=== PATIENT | female | born 1970 | race African-American/Black ===

== ENCOUNTER 2019-07-25 15:54 | Emergency (ER) | payer BC ==
[2019-07-25] MEDS ORDERED: CYCLOBENZAPRINE 10 MG TAB ONE (17:33)
[2019-07-25] MEDS ORDERED: KETOROLAC 30 MG/ML INJ ONE (17:34)
--- NOTE | 2019-07-25 17:51 | EDPHYS ---
Physician Documentation [facility] Name: Italia Valladares Age: 48 yrs Sex: Female : 1970 Arrival Date: 07/25/2019 Time: 15:54 Bed 27 Private MD: ED Physician Michelet Cobian HPI: 07/25 21:41 This 48 yrs old Black Female presents to ER via Ambulatory with complaints of Facial tw4 Tension. 21:41 The patient complains of pain to the forehead, right ear, right scientologist and right jaw. tw4 The patient describes the headache as pounding, a pressure. Onset: The symptoms/episode began/occurred today. Associated signs and symptoms: The patient has no apparent associated signs or symptoms. Severity of symptoms: At its worst the pain was moderate, in the emergency department the pain has improved. Headache History: Denies prior headaches. The patient has not experienced similar symptoms in the past. 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 - Social history:: Smoking status: Patient/guardian denies using tobacco. - Ebola Screening: : No symptoms or risks identified at this time. ROS: 21:41 Constitutional: Negative for fever, chills, and weight loss, Eyes: Negative for injury, tw4 pain, redness, and discharge, Cardiovascular: Negative for chest pain, palpitations, and edema, Respiratory: Negative for shortness of breath, cough, wheezing, and pleuritic chest pain, Abdomen/GI: Negative for abdominal pain, nausea, vomiting, diarrhea, and constipation, Back: Negative for injury and pain, MS/Extremity: Negative for injury and deformity, Skin: Negative for injury, rash, and discoloration. 21:41 Neuro: Positive for headache, Negative for altered mental status, dizziness, gait disturbance, seizure activity, speech changes, syncope, near syncope, tingling, tinnitus, visual changes. Exam: 21:41 Constitutional: This is a well developed, well nourished patient who is awake, alert, tw4 and in no acute distress. Head/Face: Normocephalic, atraumatic. Chest/axilla: Normal chest wall appearance and motion. Nontender with no deformity. No lesions are appreciated. Cardiovascular: Regular rate and rhythm with a normal S1 and S2. No gallops, murmurs, or rubs. Normal PMI, no JVD. No pulse deficits. Respiratory: Lungs have equal breath sounds bilaterally, clear to auscultation and percussion. No rales, rhonchi or wheezes noted. No increased work of breathing, no retractions or nasal flaring. Abdomen/GI: Soft, non-tender, with normal bowel sounds. No distension or tympany. No guarding or rebound. No evidence of tenderness throughout. Skin: Warm, dry with normal turgor. Normal color with no rashes, no lesions, and no evidence of cellulitis. MS/ Extremity: Pulses equal, no cyanosis. Neurovascular intact. Full, normal range of motion. Vital Signs: 16:07 BP 141 / 85; Pulse 68; Resp 16 S; Temp 98.1(TE); Pulse Ox 100% on R/A; Pain 5/10; aa5 17:18 BP 119 / 76; Pulse 70; Resp 17; Pulse Ox 100% on R/A; rv 18:00 BP 110 / 79; Pulse 66; Resp 16; Pulse Ox 100% on R/A; rv Mely Coma Score: 21:41 Eye Response: spontaneous(4). Verbal Response: oriented(5). Motor Response: obeys tw4 commands(6). Total: 15. MDM: 16:10 Patient medically screened. tw4 21:41 Data reviewed: vital signs, nurses notes. Counseling: I had a detailed discussion with tw4 the patient and/or guardian regarding: the historical points, exam findings, and any diagnostic results supporting the discharge/admit diagnosis. Special discussion: I discussed with the patient/guardian in detail that at this point there is no indication for admission to the hospital. It is understood, however, that if the symptoms persist or worsen the patient needs to return immediately for re-evaluation. Administered Medications: 17:39 Drug: TORadol 60 mg Route: IM; Site: right deltoid; rv 18:01 Follow up: Response: No adverse reaction rv 17:39 Drug: Flexeril 10 mg Route: PO; rv 18:00 Follow up: Response: No adverse reaction rv Disposition: 07/25/19 17:50 Discharged to Home. Impression: Sprain of ligaments of cervical spine. - Condition is Stable. - Discharge Instructions: General Headache Without Cause, Cervical Sprain. - Prescriptions for Fiorinal 50- 325-40 mg Oral Capsule - take 1 capsule by ORAL route every 4 hours As needed - not to exceed 6 capsules per day; 20 capsule. Cyclobenzaprine 5 mg Oral Tablet - take 1 tablet by ORAL route 3 times per day As needed; 15 tablet. - Medication Reconciliation Form, Thank You Letter, Antibiotic Education, Prescription Opioid Use form. - Follow up: Private Physician; When: Upon discharge from the Emergency Department; Reason: Recheck today's complaints, Continuance of care. - Problem is new. - Symptoms have improved. Signatures: Rosa Maria Gonzalez, RN RN aa5 Michelet Cobian MD MD tw4 Adam Plata RN RN rv Corrections: (The following items were deleted from the chart) 18:01 17:50 07/25/2019 17:50 Discharged to Home. Impression: Sprain of ligaments of cervical rv spine. Condition is Stable. Forms are Medication Reconciliation Form, Thank You Letter, Antibiotic Education, Prescription Opioid Use. Follow up: Private Physician; When: Upon discharge from the Emergency Department; Reason: Recheck today's complaints, Continuance of care. Problem is new. Symptoms have improved. tw4
--- NOTE | 2019-07-25 17:51 | ER ---
Nurse's Notes [facility] Name: Italia Valladares Age: 48 yrs Sex: Female : 1970 Arrival Date: 07/25/2019 Time: 15:54 Bed 27 Private MD: Diagnosis: Sprain of ligaments of cervical spine Presentation: 07/25 16:04 Presenting complaint: Patient states: "I feel tension to the right side of my face, aa5 it's like pressure, and nerve pain". Pt denies numbness and tingling to right side of face. Pt also reports numbness to nikki hands. Pt reports symptoms began at 1345. Transition of care: patient was not received from another setting of care. Onset of symptoms was July 2019. Risk Assessment: Do you want to hurt yourself or someone else? Patient reports no desire to harm self or others. Initial Sepsis Screen: Does the patient meet any 2 criteria? No. Patient's initial sepsis screen is negative. Does the patient have a suspected source of infection? No. Patient's initial sepsis screen is negative. Care prior to arrival: None. 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 - Social history:: Smoking status: Patient/guardian denies using tobacco. - Ebola Screening: : No symptoms or risks identified at this time. Screenin:18 Abuse screen: Denies threats or abuse. Denies injuries from another. Nutritional rv screening: No deficits noted. Tuberculosis screening: No symptoms or risk factors identified. Fall Risk None identified. Assessment: 17:17 General: Appears in no apparent distress. Behavior is calm, cooperative. Pain: Denies rv pain. Neuro: Level of Consciousness is awake, alert, obeys commands, Oriented to person, place, time, situation. Neuro: Denies weakness difficulty swallowing, numbness headache. Cardiovascular: Patient's skin is warm and dry. Respiratory: Airway is patent. Derm: Skin is intact. Vital Signs: 16:07 BP 141 / 85; Pulse 68; Resp 16 S; Temp 98.1(TE); Pulse Ox 100% on R/A; Pain 5/10; aa5 17:18 BP 119 / 76; Pulse 70; Resp 17; Pulse Ox 100% on R/A; rv 18:00 BP 110 / 79; Pulse 66; Resp 16; Pulse Ox 100% on R/A; rv Brook Coma Score: 21:41 Eye Response: spontaneous(4). Verbal Response: oriented(5). Motor Response: obeys tw4 commands(6). Total: 15. ED Course: 15:54 Patient arrived in ED. rg4 16:04 Arm band placed on. aa5 16:06 Triage completed. aa5 16:10 Michelet Cobian MD is Attending Physician. tw4 16:12 Adam Plata, CARLY is Primary Nurse. rv 17:18 Patient has correct armband on for positive identification. Pulse ox on. NIBP on. rv 18:01 No provider procedures requiring assistance completed. Patient did not have IV access rv during this emergency room visit. Administered Medications: 17:39 Drug: TORadol 60 mg Route: IM; Site: right deltoid; rv 18:01 Follow up: Response: No adverse reaction rv 17:39 Drug: Flexeril 10 mg Route: PO; rv 18:00 Follow up: Response: No adverse reaction rv Outcome: 17:50 Discharge ordered by . tw4 18:01 Discharged to home ambulatory, with family. rv 18:01 Condition: good 18:01 Discharge instructions given to patient, Instructed on discharge instructions, follow up and referral plans. medication usage, Demonstrated understanding of instructions, follow-up care, medications, Prescriptions given X 2. 18:01 Patient left the ED. rv Signatures: Rosa Maria Gonzalez, RN RN Jolie Patten 4 Michelet Cobian MD MD [facility] Adam Plata, CARLY RN rv
[2019-07-25 18:41] VITALS: TEMP 98.1; O2SAT 100
[2019-07-25 18:45] VITALS: BP 110/79
== END 2019-07-25 18:01 | disposition home or self-care (01) ==
LOC: ER 15:54
DX: S13.4XXA Sprain of ligaments of cervical spine, initial encounter (principal); X58.XXXA Exposure to other specified factors, initial encounter
CPT/HCPCS: 96372; 99283

== ENCOUNTER 2022-02-16 18:59 | Emergency (ER) | payer BC, SELFPAY ==
[2022-02-16 19:55] LABS: Urine Blood Negative (Negative); Urine Glucose Negative (Negative); Urine Protein Negative (Negative); Urine Specific Gravity 1.015 (1.005-1.030); Urine pH 6.5 (5.0-7.0)
[2022-02-16 20:31] LABS: Absolute Lymphocytes (CBC) 4.3 K/uL (0.7-4.9); Lymphocytes % 43.3 % (15.3-44.8); MCV 87.5 fL (80-100); MPV 9.5 fL (7.6-11.3); RBC Red Blood Cell Count 4.69 M/uL (3.86-4.86)
[2022-02-16 20:32] LABS: Protime INR 1.04
[2022-02-16 20:38] LABS: Urine Bacteria None Seen /HPF (<20); Urine RBC <5 /HPF (None Seen)
--- NOTE | 2022-02-16 20:41 | RAD REPORT ---
EXAM DESCRIPTION: RAD - Chest Single View - 02/16/2022 8:09 pm CLINICAL HISTORY: PALPITATIONS Chest pain. COMPARISON: No comparisons FINDINGS: Portable technique limits examination quality. The lungs are grossly clear. The heart is normal in size. No displaced fractures. IMPRESSION: No acute intrathoracic process suspected.
[2022-02-16 21:17] LABS: ALT/SGPT 33 U/L (12-78); AST/SGOT 19 U/L (15-37); Albumin 3.6 g/dL (3.4-5.0); Alkaline Phosphatase 54 U/L (45-117); BUN Blood Urea Nitrogen 18 mg/dL (7-18); Bicarbonate 31 mmol/L (21-32); Bilirubin Total 0.3 mg/dL (0.2-1.0); Glomerular Filtration Rate 48 ml/min (=/>90); Glucose Level 94 mg/dL (74-106); Magnesium 2.2 mg/dL (1.8-2.4); NT PRO-BNP 42 pg/mL (<125); Potassium 3.2 mmol/L (3.5-5.1); Protein, Total 7.6 g/dL (6.4-8.2); Sodium Level 141 mmol/L (136-145); T3 Free 2.47 pg/mL (2.18-3.98); Thyroid Stimulating Hormone 0.583 uIU/mL (0.360-3.740); Troponin High Sensitivity 16.7 pg/mL (<58.9)
[2022-02-16 21:18] LABS: Bilirubin Direct < 0.1 mg/dL (0-0.2)
[2022-02-16 21:25] LABS: Blood Morphology Comment NOT SEEN (NOT SEEN); Platelet Estimate ADEQ; White Blood Cell Scan OK (OK)
[2022-02-16 22:10] LABS: Urine Specific Gravity/Preg 1.015 (1.005-1.030)
[2022-02-16] MEDS ORDERED: POTASSIUM 25 MEQ EFFERV TAB ONE (23:07)
[2022-02-17] MEDS ORDERED: METOPROLOL TAR 25 MG TAB ONE (01:48)
[2022-02-17 04:29] VITALS: TEMP 98.3
[2022-02-17 04:37] VITALS: BP 124/111; O2SAT 99
--- NOTE | 2022-02-17 08:50 | EKG ---
Test Date: 2022-02-16 Test Time: 19:58:43 Balance Weigher: FRANCES MEASUREMENT RESULTS: Intervals: Rate: 81 WY: 192 QRSD: 82 QT: 388 QTc: 450 [place]: P: 52 WY: 192 QRS: 43 T: 46 INTERPRETIVE STATEMENTS: Normal sinus rhythm Normal ECG No previous ECG available for comparison Electronically Signed On 02-17-22 08:46:57 CDT by Marques Lopez
--- OUTSIDE RECORDS SUMMARY | 2022-02-17 11:15 | XMS REPORT | Continuity of Care Document ---
:1970 Author Organization [facility] t Address [address] [place] [address] Care Team Providers Name Role Phone SANFORD WELCH Primary Care Physician Unavailable GEOVANNA DAVIS Attending Clinician Unavailable Geovanna Ernandez Attending Clinician GEOVANNA DAVIS Admitting Clinician Unavailable Payers Payer Name Policy Type Policy Number Effective Date Expiration Date S huy [facility] [place] - [id number] 2021 00:00:00 OUT OF STATE Problems Condition Condition Condition Status Onset Resolution Last Treating Co mments Source Name Details Category Date Date Treatment Clinician Date No known No known Disease Unive rs active active ity of problems problems [facility] [place] [facility] Allergies, Adverse Reactions, Alerts Allergy Allergy Status Severity Reaction(s) Onset Inactive Treating Comm ents Source Name Type Date Date Clinician NO KNOWN Drug Active Univers ALLERGIE Class ity of S [facility] [place] [facility] Social History Social Habit Start Date Stop Date Quantity Comments Source Exposure to Not sure [facility] SARS-CoV-2 (event) Medica l Branch Sex Assigned At [birth year] [facility] 00:00:00 00:00:00 [facility] Smoking Status Start Date Stop Date Source Unknown if ever smoked [facility] Medications Ordered Filled Start Stop Current Ordering Indication Dosage Frequency Signature Comments Components Source Medication Medication Date Date Medication? Clinician (SIG) Name Name dicyclomine No 20mg 20 mg, Uni vers (BENTYL) 08-02 Intramuscu ity of injection 05:15: 04:17 lar, ONCE, [place] 20 mg 00 :00 1 dose, On Medical Fri Branch 08/01/21 at 2315, Routine maalox:diph 2021- No 15mL 15 mL, Uni vers enhydrAMINE 08-02 Oral, ity of :lidocaine 03:15: 03:28 ONCE, 1 Saad as 2 % viscous 00 :00 dose, On Medi meghan 1:1:1 Fri Branch (FIRST-MOUT 08/01/21 at [facility]) 2115, oral Routine suspension 15 mL ondansetron 2021- No 4mg 4 mg, Slow Univers (ZOFRAN 08-02 IV Push, ity of (PF)) 03:15: 03:29 ONCE, 1 [place] injection 4 00 :00 dose, On Medi meghan mg Fri Branch 08/01/21 at 2115, MICHAEL morpHINE 2021- No 4mg 4 mg, Slow Un slick injection 4 08-02 IV Push, ity of mg 03:15: 03:29 ONCE, 1 [place] 00 :00 dose, On Medical Fri Branch 08/01/21 at 2115, STAT NaCl 0.9% 2021- No 1000mL at 999 Uni vers (NS) bolus 08-02 mL/hr, ity of infusion 03:15: 04:17 1,000 mL, Saad as 1,000 mL 00 :00 IV Medical Infusion, Branch ONCE, 1 dose, On 08/01/21 at 2115, MICHAEL iohexol 2021- No [id number] 120mL 120 mL, Univers (OMNIPAQUE 08-02 Intravenou it y of 350 03:00: 02:44 s, ONCE, 1 [place] BULK-100 00 :00 dose, On Medical mL) Fri Branch injection 08/01/21 at 120 mL 2100, Routine dicyclomine 0 Yes [id number] 10mg Take 1 Univers 10 mg 1-14 capsule by ity of capsule 00:00: mouth 4 [place] 00 (four) Medical times Branch daily as needed for Abdominal pain. ondansetron 0 Yes [id number] 4mg Take 1 Univers 4 mg 1-14 tablet by ity of disintegrat 00:00: mouth [place] ing tablet 00 every 12 Medic al (twelve) Branch hours as needed for Nausea and Vomiting (N/V). traMADoL 2021- No [id number] 50mg Take 1 Univer s (ULTRAM) 50 1-14 08-09 tablet by it y of mg tablet 00:00: 05:59 mouth [place] 00 :00 every 6 Medical (six) Branch hours as needed for Pain (scale 7-10) for up to 7 days. Indication s: acute pain Immunizations Ordered Filled Immunization Date Status Comments [facility] e Immunization Name Name SARS-COV-2 COVID-19 2020-10-13 Completed Unive rsity of MODERNA VACCINE 00:00:00 [facility] SARS-COV-2 COVID-19 2020-09-15 Completed Unive rsity of MODERNA VACCINE 00:00:00 [facility] Vital Signs Vital Name Observation Time Observation Value Comments Source Systolic blood 2021-08-02 04:15:00 157 mm[Hg] Univer sity of pressure [facility] Diastolic blood 2021-08-02 04:15:00 97 mm[Hg] Unive [facility] of pressure [facility] Heart rate 2021-08-02 04:15:00 68 /min [facility] Respiratory rate 2021-08-02 04:15:00 22 /min [facility] Oxygen saturation in 2021-08-02 04:15:00 99 /min [facility] Arterial blood by [facility] Pulse oximetry [place] Body temperature 2021-08-02 02:02:00 36.83 Krystal [facility] Body weight 2021-08-02 02:02:00 108.863 kg [facility] Procedures Procedure Date / Time Performed Performing Clinician [facility] e CT ABDOMEN PELVIS W 2021-08-02 02:48:17 Geovanna Davis [facility] CONTRAST [facility] URINALYSIS 2021-08-02 02:29:00 Geovanna Davis [facility] COVID-19 (ID NOW RAPID 2021-08-02 02:29:00 Geovanna Davis [facility] TESTING) Medical Branch LIPASE 2021-08-02 02:18:00 Geovanna Davis [facility] TROPONIN I 2021-08-02 02:18:00 Geovanna Davis [facility] COMP. METABOLIC PANEL 2021-08-02 02:18:00 Geovanna Davis [facility] ([id number]) [facility] CBC WITH DIFF 2021-08-02 02:18:00 Geovanna Davis [facility] NOTICE OF PRIVACY 2021-08-02 01:53:07 Doctor Unassigned, No Univ [facility] PRACTICES Name [facility] CONSENT/REFUSAL FOR 2021-08-02 01:51:56 [facility] TREATMENT Encounters Start End Encounter Admission Attending Care Care Encounter Source Date/Time Date/Time Type Type Clinicians Facility Department ID 2021-08-01 2021-08-01 Emergency X [facility] ERT [id number] Univers 20:00[facility]00 22[facility]34[facility]-01 2021-08-01 Emergency [facility] [id number] Univers 20:00:00 22:34:00 Geovanna [place] CONNELL [id number] i [facility] [id number] [facility] [id number] [place] [id number] Branch Results Test Description Test Time Test Comments Results Result Comments Source TROPONIN I 2021-08-02 02:59:02 Test Item Value Reference Range Interpretation Comme nts TROPONIN I (test code = 0.001 ng/mL See_Comment [Au tomated message] The 5630126784) system which ge nerated this result tra nsmitted reference range : <=0.034. The reference r rosa was not used to int erpret this result as normal/abnormal . FLORIAN (test code = FLORIAN) Reference (Normal) Range (defined by the 99th percentile reference limit): <= 0.034 ng/mL Note: Cardiac troponin begins to rise 3-4 hours after the onset of ischemia. Repeat in 4-6 hours if the sample was drawn within 3-4 hours of the onset of the symptom and found normal. Diagnosis of myocardial injury is made with acute changes in cTn concentrations with at least one serial sample above the 99th percentile upper reference limit (URL), taken together with the patient's clinical presentation. Biotin has been reported to cause a negative bias, interpret results relative to patient's use of biotin. Lab Interpretation Normal (test code = 36393-9) [facility]. METABOLIC PANEL ([id number])2021-08-02 02:50:22 Test Item Value Reference Range Interpretation Comments NA (test code = 137 mmol/L 135-145 2215749740) K (test code = 3.9 mmol/L 3.5-5.0 3587040927) CL (test code = 102 mmol/L 98-108 7501040491) CO2 TOTAL (test code = 29 mmol/L 23-31 5640382875) AGAP (test code = 2-16 5002803548) BUN (test code = 15 mg/dL 7-23 9450010316) GLUCOSE (test code = 108 mg/dL 70-110 9842155341) CREATININE (test code = 1.01 mg/dL 0.50-1.04 7641777326) TOTAL BILI (test code = 0.5 mg/dL 0.1-1.7 8628939083) CALCIUM (test code = 9.0 mg/dL 8.6-10.6 6915334067) T PROTEIN (test code = 7.7 g/dL 6.3-8.2 4684159457) ALBUMIN (test code = 4.2 g/dL 3.5-5.0 9965196169) ALK PHOS (test code = 68 U/L 34-122 2199260937) ALTv (test code = 44 U/L 5-35 H 1742-6) AST(SGOT) (test code = 35 U/L 13-40 6858027903) eGFR (test code = mL/min/1.73m2 8156664477) FLORIAN (test code = FLORIAN) Association of Glomerular Filtration Rate (GFR) and Staging of Kidney Disease* + --+ --+ ------+| GFR (mL/min/1.73 m2) ?| With Kidney Damage ?| ?Without Kidney Damage+ --------+ --------+ +| ?>90 ?| ?Stage one ?| ? Normal ?+ ---+ ---+ -------+| ?60-89 ?| ?Stage two ?| ? Decreased GFR ? + --+ --+ ------+| ?30-59 ?| ?Stage three ?| ? Stage three ? + --+ --+ ------+| ?15-29 ?| ?Stage four ? | ? Stage four ?+ ---+ ---+ -------+| ?<15 (or dialysis) ? ?| ?Stage five ? | ? Stage five ?+ ---+ ---+ -------+ *Each stage assumes the associated GFR level has been in effect for at least three months. ?Stages 1 to 5, with or without kidney disease, indicate chronic kidney disease. Notes: Determination of stages one and two (with eGFR >59mL/min/1.73 m2) requires estimation of kidney damage for at least three months as defined by structural or functional abnormalities of the kidney, manifested by either:Pathological abnormalities or Markers of kidney damage (including abnormalities in the composition of the blood or urine or abnormalities in imaging tests). Lab Interpretation Abnormal (test code = 98474-2) [facility] Test Item Value Reference Range Interpretation Comments LIPASE (test code = 8113333491) 43 U/L 0-220 Lab Interpretation (test code = Normal 72135-0) [facility] WITH [id number] 02:33:42 Test Item Value Reference Range Interpretation Comments WBC (test code = See_Comment [Automated message] 5390-2) The system Tymphany generated this result transmitted ref erence range: 4.30 - 1 1.10 10*3/?L. The re ference range was not u sed to interpret this result as normal/abnor mal. RBC (test code = See_Comment [Automated message] 789-8) The system Tymphany generated this result transmitted ref erence range: 3.93 - 5 .25 10*6/?L. The re ference range was not u sed to interpret this result as normal/abnor mal. HGB (test code = 14.1 g/dL 11.6-15.0 718-7) HCT (test code = 42.0 % 35.7-45.2 4544-3) MCV (test code = 86.8 fL 80.6-95.5 787-2) MCH (test code = 29.1 pg 25.9-32.8 785-6) MCHC (test code = 33.6 g/dL 31.6-35.1 786-4) RDW-SD (test code 39.7 fL 39.0-49.9 = 02807-4) RDW-CV (test code 12.5 % 12.0-15.5 = 788-0) PLT (test code = See_Comment [Automated message] 777-3) The system whic h generated this result transmitted ref erence range: 166 - 35 8 10*3/?L. The re ference range was not u sed to interpret this result as normal/abnor mal. MPV (test code = 10.8 fL 9.5-12.9 83104-0) NRBC/100 WBC (test See_Comment [Automat ed message] code = 7926609523) The syste m which generated this result transmitted ref erence range: 0.0 - 10 .0 /100 WBCs. The refer ence range was not u sed to interpret this result as normal/abnor mal. NRBC x10^3 (test <0.01 See_Comment [Automated message] code = 3834235655) The syste m which generated this result transmitted ref erence range: 10*3/?L. The reference range was not used to interpr et this result as normal/abnormal . GRAN MAT (NEUT) % 62.4 % (test code = 770-8) IMM GRAN % (test 0.40 % code = 5357413322) LYMPH % (test code 30.0 % = 736-9) MONO % (test code 6.0 % = 5905-5) EOS % (test code = 0.6 % 713-8) BASO % (test code 0.6 % = 706-2) GRAN MAT 6.68 10*3/uL 1.88-7.09 x10^3(ANC) (test code = 0046390089) IMM GRAN x10^3 0.04 10*3/uL 0.00-0.06 (test code = 4979732550) LYMPH x10^3 (test 3.21 10*3/uL 1.32-3.29 code = 731-0) MONO x10^3 (test 0.64 10*3/uL 0.33-0.92 code = 742-7) EOS x10^3 (test 0.06 10*3/uL 0.03-0.39 code = 711-2) BASO x10^3 (test 0.06 10*3/uL 0.01-0.07 code = 704-7) [facility]"
--- NOTE | 2022-02-17 13:17 | RAD REPORT ---
EXAM DESCRIPTION: CT - Chest For Pe Angio - 02/17/2022 4:11 am CLINICAL HISTORY: The patient is 51 years old and is Female; palpitations TECHNIQUE: Axial computed tomographic angiography images of the chest with intravenous contrast. T his CT exam was performed using one or more of the following dose reduction techniques: automated e xposure control, adjustment of the mA and/or kV according to patient size, and/or use of iterative re construction technique. MIP reconstructed images were created and reviewed. DLP: 497 mGy*cm COMPARISON: Chest radiograph of the same day. FINDINGS: PULMONARY ARTERIES: Unremarkable. No pulmonary embolism. AORTA: No acute findings. No thoracic aortic aneurysm. LUNGS: Unremarkable. No mass. No consolidation. PLEURAL SPACE: Unremarkable. No significant effusion. No pneumothorax. HEART: Unremarkable. No cardiomegaly. No significant pericardial effusion. No evidence of RV dysfunction. BONES/JOINTS: No acute fracture. No dislocation. SOFT TISSUES: Unremarkable. LYMPH NODES: Unremarkable. No enlarged lymph nodes. OTHER FINDINGS: Multilevel density changes. IMPRESSION: No pulmonary embolism. No acute intrathoracic abnormality. Electronically signed by: Derrell Kern DO 02/16/2022 11:45 PM CDT Due to temporary technical issues with the PACS/FlueNcy reporting system, reports are being signed by the in house radiologists without review as a courtesy to insure prompt reporting. The interpreting radiologist is fully responsible for the content of the report.
--- NOTE | 2022-02-17 13:18 | RAD REPORT ---
EXAM DESCRIPTION: US - Extrem Venous W Compress [place] - 02/17/2022 12:30 am CLINICAL HISTORY: 51 years Female SWELLING COMPARISON: None TECHNIQUE: Spectral analysis and color/grayscale sonographic images of both legs were obtained utili zing a high-frequency linear array transducer supplemented with color Doppler, compression and augmen tation techniques. FINDINGS: Right leg veins: Common femoral: normal Greater saphenous: normal Superficial femoral: normal Popliteal: normal Calf Veins: normal Left leg veins: Common femoral: normal Greater saphenous: normal Superficial femoral: normal Popliteal: normal Calf Veins: normal IMPRESSION: 1. No sonographic evidence for lower extremity deep venous thrombosis in either leg. Electronically signed by: Adonis Gonzalez MD 02/17/2022 12:09 AM CDT Due to temporary technical issues with the PACS/FlueNcy reporting system, reports are being signed by the in house radiologists without review as a courtesy to insure prompt reporting. The interpreting radiologist is fully responsible for the content of the report.
--- NOTE | 2022-02-18 09:57 | ER ---
Nurse's Notes [facility] Name: Italia Valladares Age: 51 yrs Sex: Female : 1970 Arrival Date: 02/16/2022 Time: 19:32 Bed 23 Private MD: Diagnosis: Supraventricular tachycardia Presentation: 02/16 19:47 Chief complaint: EMS states: they were toned out for report of pt with chest pain and bb SOB pt was in SVT on their arrival with a rate of 175 they gave aspirin 324 mg and adenosine 6 mg and rate now in the 90s. Coronavirus screen: At this time, the client does not indicate any symptoms associated with coronavirus-19. Ebola Screen: No symptoms or risks identified at this time. Initial Sepsis Screen: Does the patient meet any 2 criteria? No. Patient's initial sepsis screen is negative. Does the patient have a suspected source of infection? No. Patient's initial sepsis screen is negative. Risk Assessment: Do you want to hurt yourself or someone else? Patient reports no desire to harm self or others. Onset of symptoms was February 16, 2022. Care prior to arrival: Medication(s) given: Adenosine, 6 mg, x 1, ASA, 81 mg, x 4, Normal saline infusion, 250 mL IV initiated. 18 GA, in the left antecubital area. 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 - Social history:: Smoking status: unknown. Screenin:51 Abuse screen: Denies threats or abuse. Nutritional screening: No deficits noted. bb Tuberculosis screening: No symptoms or risk factors identified. Fall Risk None identified. Assessment: 19:51 General: Appears in no apparent distress. Behavior is calm, cooperative. Pain: Denies bb pain. Neuro: Level of Consciousness is awake, alert, obeys commands, Oriented to person, place, time, situation. Cardiovascular: Capillary refill < 3 seconds Patient's skin is warm and dry. Rhythm is sinus rhythm. Respiratory: Respiratory effort is even, unlabored, Respiratory pattern is regular. Respiratory: Breath sounds are clear bilaterally. GI: No signs and/or symptoms were reported involving the gastrointestinal system. Derm: Skin is dry, Skin is normal, Skin temperature is warm. Musculoskeletal: Circulation, motion, and sensation intact. 20:22 Reassessment: Patient is alert, oriented x 3, equal unlabored respirations, skin bb warm/dry/pink. family at bedside awaiting diagnostic results. 02/17 01:49 Reassessment: No changes from previously documented assessment. Patient and/or family [facility] updated on plan of care and expected duration. Pain level reassessed. Vital Signs: 02/16 19:47 BP 132 / 101; Pulse 90; Resp 16 S; Temp 97.9(O); Pulse Ox 100% on R/A; Weight 106.14 kg bb (R); Height 5 ft. 7 in. (170.18 cm) (R); Pain 0/10; 20:22 BP 114 / 76; Pulse 85; Resp 20 S; Pulse Ox 100% on R/A; bb 20:45 BP 110 / 68; Pulse 84; Resp 18; Temp 98.3(O); Pulse Ox 100% on R/A; wm 22:30 BP 117 / 79; Pulse 77; Resp 18; Pulse Ox 100% on R/A; 5 02/17 01:49 BP 124 / 111; Pulse 75; Resp 18; Pulse Ox 99% on R/A; [facility] 02/16 19:47 Body Mass Index 36.65 (106.14 kg, 170.18 cm) ED Course: 02/16 19:32 Patient arrived in ED. bb 19:34 Sameer Ryan PA is PHCP. cp 19:34 Domo [place]inas MD is Attending Physician. cp 19:47 Sofya Swann RN is Primary Nurse. bb 19:50 Triage completed. bb 19:50 Arm band placed on Patient placed in an exam room, on a stretcher, on hall monitor, bb on pulse oximetry. EKG completed in triage. Results shown to MD. 19:51 Patient has correct armband on for positive identification. Placed in gown. Bed in low bb position. Call light in reach. Side rails up X 1. Client placed on continuous cardiac and pulse oximetry monitoring. NIBP monitoring applied. Warm blanket given. 19:51 Maintain EMS IV. Dressing intact. Site clean \T\ dry. Gauge \T\ site: 18g L AC. bb 20:11 XRAY Chest (1 view) In Process Unspecified. EDMS 20:14 Urine Dipstick-Ancillary Sent. zm 20:14 T4 Free Sent. zm 20:14 T3 Free Sent. zm 20:14 TSH Sent. zm 20:14 Urine Microscopic Only Sent. zm 20:14 Basic Metabolic Panel Sent. zm 20:15 CBC with Diff Sent. zm 20:15 LFT's Sent. zm 20:15 Magnesium Sent. zm 20:15 NT PRO-BNP Sent. zm 20:15 PT-INR Sent. zm 20:15 Troponin HS Sent. zm 23:20 CT Chest For PE Angio In Process Unspecified. EDMS 23:33 LAB Add On Sent. sm5 23:54 US Extremity Venous W Compression [place] In Process Unspecified. EDME 02/17 01:36 Marques Lopez MD is Referral Physician. cp 01:50 No provider procedures requiring assistance completed. IV discontinued, intact, sm5 bleeding controlled, No redness/swelling at site. Pressure dressing applied. Administered Medications: 02/16 23:32 Drug: Potassium Effervescent Tablet 50 mEq Route: PO; bb 02/17 01:49 Drug: Metoprolol 12.5 mg Route: PO; 5 01:51 Follow up: Response: No adverse reaction 5 Medication: 01:50 VIS not applicable for this client. 5 Outcome: 01:36 Discharge ordered by . cp 01:50 Discharged to home ambulatory, with family. sm5 01:50 Condition: stable 01:50 Discharge instructions given to patient, family, Instructed on discharge instructions, follow up and referral plans. medication usage, Demonstrated understanding of instructions, follow-up care, medications, Prescriptions given X 1. 01:51 Patient left the ED. 5 Signatures: Dispatcher [employer] EDMS Sofya Swann RN RN Sameer Mcfadden PA PA cp Marsh, Wendy wm Mazur, Sarah, RN RN 5 Veronica Monteiro
--- NOTE | 2022-02-18 09:57 | EDPHYS ---
Physician Documentation [facility] Name: Italia Valladares Age: 51 yrs Sex: Female : 1970 Arrival Date: 02/16/2022 Time: 19:32 Bed 23 Private MD: ED Physician Domo [place] HPI: 02/16 20:00 This 51 yrs old Black Female presents to ER via EMS with complaints of Palpitations. cp 20:00 The patient presents with a history of heart racing. Context: The symptoms occur while cp eating tonight. 20:00 Onset: The symptoms/episode began/occurred just prior to arrival. cp 20:00 Duration: The patient or guardian reports a single episode, that is now resolved, EMS cp reported performing EKG that showed supraventricular tachycardia. Patient given 6 mg Adenosine and now reports chest pain and palpitations resolved. 20:00 Associated signs and symptoms: Pertinent positives: chest pain, palpitations, Pertinent cp negatives: cough, fever, SOB, syncope, unusual stressors. 20:00 Severity of symptoms: in the emergency department the symptoms have resolved after cp treatment by EMS personnel. 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 - Social history:: Smoking status: unknown. ROS: 20:05 Constitutional: Negative for body aches, chills, fever, poor PO intake. cp 20:05 Eyes: Negative for injury, pain, redness, and discharge. cp 20:05 Cardiovascular: Positive for chest pain, palpitations, Negative for edema. 20:05 Respiratory: Positive for shortness of breath, Negative for cough, wheezing. 20:05 Abdomen/GI: Negative for abdominal pain, vomiting, diarrhea, constipation. 20:05 Back: Negative for injury or acute deformity, radiated pain. cp 20:05 : Negative for urinary symptoms, vaginal bleeding. 20:05 Skin: Negative for cellulitis, rash. 20:05 Neuro: Negative for altered mental status, dizziness, headache, numbness, syncope, weakness. 20:05 All other systems are negative. Exam: 20:00 ECG was reviewed by the Attending Physician. cp 20:10 Constitutional: The patient appears in no acute distress, alert, awake, cp non-diaphoretic, non-toxic, well developed, well nourished. 20:10 Head/Face: Normocephalic, atraumatic. cp 20:10 Eyes: Periorbital structures: appear normal, Pupils: equal, round, and reactive to light and accomodation, Extraocular movements: intact throughout, Conjunctiva: normal, no exudate, no injection, Sclera: no appreciated abnormality, Lids and lashes: appear normal, bilaterally. 20:10 ENT: External ear(s): are unremarkable, Nose: is normal, Mouth: Lips: moist, Oral mucosa: pink and intact, moist, Posterior pharynx: Airway: no evidence of obstruction, patent, swelling, is not appreciated, erythema, is not appreciated. 20:10 Neck: External neck: is normal, ROM/movement: is normal, is supple, without pain, no range of motions limitations, no nuchal rigidity. 20:10 Chest/axilla: Inspection: normal. 20:10 Cardiovascular: Rate: normal, Rhythm: regular, Heart sounds: murmur, not appreciated, Edema: is not appreciated, JVD: is not appreciated. 20:10 Respiratory: the patient does not display signs of respiratory distress, Respirations: normal, no use of accessory muscles, no retractions, no splinting, no tachypnea, labored breathing, is not present, Breath sounds: are clear throughout, no decreased breath sounds, no stridor, no wheezing. 20:10 Abdomen/GI: Inspection: abdomen appears normal, Palpation: abdomen is soft and non-tender, in all quadrants, rebound tenderness, is not appreciated, voluntary guarding, is not appreciated, involuntary guarding, is not appreciated. 20:10 Back: pain, is absent, ROM is normal. 20:10 Neuro: Orientation: to person, place \T\ time. Mentation: is normal, Cerebellar function: is grossly normal, Motor: moves all fours, strength is normal, Sensation: is normal. Vital Signs: 19:47 BP 132 / 101; Pulse 90; Resp 16 S; Temp 97.9(O); Pulse Ox 100% on R/A; Weight 106.14 kg bb (R); Height 5 ft. 7 in. (170.18 cm) (R); Pain 0/10; 20:22 BP 114 / 76; Pulse 85; Resp 20 S; Pulse Ox 100% on R/A; bb 20:45 BP 110 / 68; Pulse 84; Resp 18; Temp 98.3(O); Pulse Ox 100% on R/A; wm 22:30 BP 117 / 79; Pulse 77; Resp 18; Pulse Ox 100% on R/A; sm5 02/17 01:49 BP 124 / 111; Pulse 75; Resp 18; Pulse Ox 99% on R/A; sm5 02/16 19:47 Body Mass Index 36.65 (106.14 kg, 170.18 cm) bb MDM: 02/16 19:43 Patient medically screened. cp 20:00 Differential diagnosis: arrythmia, dehydration, stress disorder, acute NV, pulmonary cp embolism, DVT. 02/17 01:29 Data reviewed: vital signs, nurses notes, lab test result(s), EKG, radiologic studies, cp CT scan, doppler, plain films. Physician consultation: Marques Lopez MD was called at 01:30, was contacted at 01:30, regarding patient's condition, and will see patient in office, wants patient to start daily beta charis. 01:35 Test interpretation: by ED physician or midlevel provider: ECG, plain radiologic cp studies. 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 Response to treatment: the patient's symptoms have resolved after treatment, the patient is not tachycardic, the patient's pain is gone, and as a result, I will discharge patient. Special discussion: I discussed with the patient/guardian in detail that at this point there is no indication for admission to the hospital. It is understood, however, that if the symptoms persist or worsen the patient needs to return immediately for re-evaluation. Based on the history and exam findings, there is no indication for further emergent testing or inpatient evaluation. 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 02/16 19:47 Order name: Basic Metabolic Panel; Complete Time: 21:25 cp 02/16 23:37 Interpretation: Normal except: K 3.2; CRE 1.34; GFR 48. cp 02/16 19:47 Order name: CBC with Diff; Complete Time: 22:05 cp 02/16 19:47 Order name: LFT's; Complete Time: 21:25 cp 02/16 23:37 Interpretation: Normal except: GLOB 4.0; A/G 0.9. cp 02/16 19:47 Order name: Magnesium; Complete Time: 21:25 cp 02/16 19:47 Order name: NT PRO-BNP; Complete Time: 21:25 cp 02/16 19:47 Order name: PT-INR; Complete Time: 22:05 cp 02/16 19:47 Order name: Troponin HS; Complete Time: 21:25 cp 02/16 19:47 Order name: Urine Microscopic Only; Complete Time: 21:25 cp 02/16 19:47 Order name: TSH; Complete Time: 21:25 cp 02/16 19:47 Order name: T3 Free; Complete Time: 21:25 cp 02/16 19:47 Order name: T4 Free; Complete Time: 21:25 cp 02/16 19:55 Order name: Urine Dipstick-Ancillary EDMS 02/16 20:16 Order name: Urine --Ancillary (enter results); Complete Time: 23:36 mw2 02/16 20:44 Order name: CBC Smear Scan; Complete Time: 22:05 EDMS 02/16 19:47 Order name: XRAY Chest (1 view); Complete Time: 21:25 cp 02/16 19:47 Order name: EKG; Complete Time: 19:53 cp 02/16 19:47 Order name: Cardiac monitoring; Complete Time: 19:58 cp 02/16 19:47 Order name: EKG - Nurse/Tech; Complete Time: 19:58 cp 02/16 19:47 Order name: IV Saline Lock; Complete Time: 19:58 cp 02/16 19:47 Order name: Labs collected and sent; Complete Time: 19:58 cp 02/16 19:47 Order name: O2 Per Protocol; Complete Time: 19:58 cp 02/16 19:47 Order name: O2 Sat Monitoring; Complete Time: 19:58 cp 02/16 21:27 Order name: LAB Add On cp 02/16 21:34 Order name: D-Dimer; Complete Time: 22:05 EDMS 02/16 22:05 Order name: CT Chest For PE Angio cp 02/16 22:05 Order name: US Extremity Venous W Compression [place] cp 02/17 00:02 Order name: Troponin High Sensitivity; Complete Time: 01:18 cp 02/16 19:47 Order name: Urine Dipstick-Ancillary (obtain specimen); Complete Time: 19:58 cp 02/16 19:47 Order name: Urine Test (obtain specimen); Complete Time: 19:58 cp EC/01 20:00 Rate is 81 beats/min. Rhythm is regular. [place] interval is normal. QRS interval is normal. cp QT interval is normal. T waves are Inverted in leads aVR, V2. Interpreted by me. Reviewed by me. Administered Medications: 23:32 Drug: Potassium Effervescent Tablet 50 mEq Route: PO; bb 02/17 01:49 Drug: Metoprolol 12.5 mg Route: PO; [facility] 01:51 Follow up: Response: No adverse reaction [facility] Disposition: 02:05 Co-signature as Attending Physician, Domo [place] MD I agree with the assessment and kdr plan of care. Disposition Summary: 02/17/22 01:36 Discharge Ordered Location: Home cp Problem: new cp Symptoms: have improved cp Condition: Stable cp Diagnosis - Supraventricular tachycardia cp Followup: cp - With: Marques Lopez MD - When: 2 - 3 days - Reason: Recheck today's complaints Discharge Instructions: - Discharge Summary Sheet cp - Chemical Cardioversion cp - Supraventricular Tachycardia, Adult cp Forms: - Medication Reconciliation Form cp - Thank You Letter cp - Antibiotic Education cp - Prescription Opioid Use cp Prescriptions: - Metoprolol Tartrate 25 mg Oral Tablet - take 0.5 tablet by ORAL route 2 times per day with a meal; 20 tablet; Refills: cp 0, Product Selection Permitted Signatures: Dispatcher [employer] Domo Mg MD MD kdr Ballard, Brenda, RN RN Sameer Mcfadden PA PA cp Rin Burnette RN RN 5 Corrections: (The following items were deleted from the chart) 02/16 21:32 21:30 D-DIMER+[email or web address].LAB.BRZ ordered. EDMS EDMS
== END 2022-02-17 01:51 | disposition home or self-care (01) ==
LOC: ER 18:59
DX: I47.1 Supraventricular tachycardia (principal); R07.9 Chest pain, unspecified; I10 Essential (primary) hypertension; E07.9 Disorder of thyroid, unspecified
CPT/HCPCS: 93005; 85025; 80048; 36415; 83735; 81025; 85610; 85379; 80076; 84443; 84484 ×2; 84481; 84439; 83880; 71275; 71045; 93970; Q9967; 81003; 81015; 99284